=== PATIENT | female | born 1995 | race Caucasian/White ===

== ENCOUNTER 2022-01-25 05:22 | Inpatient (IN) | payer OTHER ==
[2022-01-25] VITALS (17 sets, daily range): BP systolic 94–135; BP diastolic 45–82; PULSE 70–95; TEMP 98–98.9
[~2022-01-25] VITALS: Ht 165.1 cm; Wt 90.0 kg
[2022-01-25 07:11] LABS: MEAN CELL VOLUME 84 fl (80.0-100.0); MEAN CORPUSCULAR HGB CONC 30 g/dl (33.0-37.0); MEAN PLATELET VOLUME 11.5 fl (7.4-10.4); PLATELET COUNT 229 K/mm3 (130-400); RED BLOOD COUNT 3.53 M/mm3 (4.10-5.30); REDCELL DISTRIBUTION WIDTH-CV 15.4 % (11.5-14.5)
[2022-01-25 07:12] LABS: HEMATOCRIT 29.8 % (37.0-47.0); MEAN CORPUSCULAR HEMOGLOBIN 25 pg (27-31)
[2022-01-25 08:52] LABS: ANISOCYTOSIS 1+; EOSINOPHIL 1 % (0-4); HYPOCHROMIA 3+; LYMPHOCYTE 16 % (20.0-51.0); NEUTROPHILS 79 % (42.0-75.2)
[2022-01-25 08:53] LABS: PLATELET ESTIMATE NORMAL (NORMAL)
--- NOTE | 2022-01-25 09:08 | NUR ---
SMALL AMOUNT OF SHADOWING NOTED ON BOTTOM PORTION OF DRESSING. BLEEDING WNL. FUNDUS FIRM AND 2 DOWN
--- NOTE | 2022-01-25 10:25 | NUR ---
SLIGHT DRAINAGE FROM INCISION SITE NOTED. [employer] TECHJADYN, REMOVED SURGICAL DRESSING AND APPLIED STERISTIPS AND FRESH DRESSING TO AREA. DR DIAZ NOTIFIED. PT TOLERATED WELL.
[2022-01-25] MEDS ORDERED: TRANDATE 200MG200 MG PO (10:29)
[2022-01-25] MEDS ORDERED: PRENATAL TABLET PO (10:31)
[2022-01-25] MEDS ORDERED: NATURAL IRON65 MG (10:32)
[2022-01-26 06:45] VITALS: BP 116/65; PULSE 76; TEMP 98.7
[2022-01-26] MEDS ORDERED: IBU800 M1 PO (08:37)
[2022-01-26] MEDS ORDERED: NORMODYNE100 MG PO (08:37)
--- NOTE | 2022-01-26 09:30 | NUR ---
Initial visit attempt; Patient indisposed, House Detective left card of congratulations and God's blessings for the of their daughter. House Detective thanked family for choosing our hospital.
[2022-01-26 11:30] VITALS: BP 126/66; PULSE 86; TEMP 99.2
[2022-01-26 16:30] VITALS: BP 117/67; PULSE 77; TEMP 98.3
[2022-01-26 20:55] VITALS: BP 128/69; PULSE 89; TEMP 98.5
[2022-01-27 05:15] VITALS: BP 118/69; PULSE 78; TEMP 98.4
[2022-01-27 08:30] VITALS: BP 128/61; PULSE 74; TEMP 97.9
--- NOTE | 2022-01-27 11:54 | NUR ---
1110DISCHARGE INSTRUCTIONS REVIEWED WITH PATIENT. PATIENT VERBALIZED UNDERSTANDING. WILL NOTIFY THIS RN WHEN READY TO LEAVE. [id number] PERSONAL BELONGINGS GATHERED FROM PATIENT ROOM. PATIENT LEFT AMBULATORY AND IN NO APPARENT DISTRESS. PATIENT ACCOMPANIED BY SPOUSE AND THIS RN.
== END 2022-01-27 11:45 | disposition home or self-care (01) | DRG 788 ==
LOC: OB 05:22
PROVIDERS: ADMIT Student in an Organized Health Care Education/Training Program
PROC: 10D00Z1 Extraction of Products of Conception, Low, Open Approach (ICD-10-PCS; principal; 2022-01-25)
DX: O14.04 Mild to moderate pre-eclampsia, complicating childbirth (principal); O32.1XX0 Maternal care for breech presentation, not applicable or unspecified; O34.03 Maternal care for unspecified congenital malformation of uterus, third trimester; O99.344 Other mental disorders complicating childbirth; F41.9 Anxiety disorder, unspecified; O99.284 Endocrine, nutritional and metabolic diseases complicating childbirth; E28.2 Polycystic ovarian syndrome; O99.02 Anemia complicating childbirth; D64.9 Anemia, unspecified; J45.909 Unspecified asthma, uncomplicated; O99.52 Diseases of the respiratory system complicating childbirth; O99.214 Obesity complicating childbirth; E66.01 Morbid (severe) obesity due to excess calories; Z37.0 Single live birth; Z3A.37 37 weeks gestation of pregnancy; Q51.810 Arcuate uterus
CPT/HCPCS: J0690; J1100; J1885; J2370; J2405; J2590; J7120